=== PATIENT | male | born 1935 | race Two or more races ===

== ENCOUNTER 2016-12-10 23:24 | Inpatient (IN) | payer MEDICARE, BC ==
[~2016-12-10] VITALS: Ht 177.8 cm; Wt 86.2 kg
--- NOTE | 2016-12-10 23:40 | NUR ---
TO BED 1 BIB PARAMEDICS C/O DIZZINESS. PT AAOX4 NO ACUTE DISTRESS NOTED, RESP EVEN AND UNLABORED. PLACE PT ON CARDIAC MONITORING, CONTINUOUS POX. ER MD AT BEDSIDE TO EVAL PT WITH ORDERS RECEIVED. PUPILS PERRL, PT ABLE TO MOVE ALL EXTREMITIES WELL WITH BILATERAL EQUAL SPEECH AND HEARING DIRECTOR. SL 20G TO LAC BEAD WORKER SEWING.
[2016-12-11] MEDS ORDERED: ASPIRIN 81 MG TAB.CHEW ONE
[2016-12-11] MEDS ORDERED: ASPIRIN 81 MG TAB.CHEW PO ONE
[2016-12-11] MEDS ORDERED: IV NS 0.9% 1,000 ML BAG IV ONE
[2016-12-11 00:08] LABS: BASOPHILS % (AUTO) 0.4 % (0.0-2.0); EOSINOPHILS # (AUTO) 0.1 /CMM (0.0-0.7); EOSINOPHILS % (AUTO) 1.4 % (0.0-6.0); HEMATOCRIT 41 % (39-51); HEMOGLOBIN 14.2 g/dL (13.5-17.5); LYMPHOCYTES # (AUTO) 1.3 /CMM (0.8-4.8); LYMPHOCYTES % (AUTO) 24.4 % (20.0-44.0); MEAN CORPUSCULAR HEMOGLOBIN 31 PG (26.0-33.0); MEAN CORPUSCULAR HGB CONC 35 g/dl (31.0-36.0); MEAN CORPUSCULAR VOLUME 89 fL (80-96); MONOCYTES # (AUTO) 0.4 /CMM (0.1-1.30); MONOCYTES % (AUTO) 7.6 % (2.0-12.0); NEUTROPHILS # (AUTO) 3.7 /CMM (1.8-8.9); NEUTROPHILS % (AUTO) 66.2 % (43.0-81.0); PLATELET COUNT (AUTO) 138 /CMM (150-450); RDW COEFFICIENT OF VARIATION 14.2 (11.5-15.0); RED BLOOD CELL COUNT(AUTO) 4.64 MIL/uL (4.5-6.0); WHITE BLOOD COUNT (AUTO) 5.5 K/uL (4.3-11.0)
--- NOTE | 2016-12-11 00:17 | NUR ---
ASSIGNED TELE BED 321-2
[2016-12-11 00:26] LABS: CALCIUM, SERUM 8.7 mg/dL (8.5-10.1); CARBON DIOXIDE 23 mmol/L (21-32); CHLORIDE 103 mmol/L (98-107); CREATININE 1.9 mg/dL (0.6-1.3); GLUCOSE 272 mg/dL (74-106); POTASSIUM 4.7 mmol/L (3.5-5.1); SODIUM SERUM 137 mmol/L (136-145); UREA NITROGEN, BLOOD 26 mg/dL (7-18)
[2016-12-11 00:32] LABS: ALANINE AMINOTRANSFERASE 29 U/L (12-78); ALBUMIN 3.7 g/dL (3.4-5.0); ALKALINE PHOSPHATASE 46 U/L (46-116); ASPARTATE AMINOTRANSFERASE 16 U/L (15-37); BILIRUBIN,DIRECT 0.1 mg/dL (0.0-0.2); BILIRUBIN,TOTAL 0.5 mg/dL (0.2-1.0); TOTAL PROTEIN, SERUM 7.3 g/dL (6.4-8.2)
[2016-12-11 00:34] LABS: TROPONIN I < 0.017 ng/mL (0.00-0.056)
--- NOTE | 2016-12-11 00:51 | NUR ---
ER MD AT BEDSIDE TALKING TO PT AND PT FAMILY MEMBERS REGARIDNG LAB RESULTS AND HOSPITAL ADMISSION. PT AGREED.
[2016-12-11 01:03] LABS: INR 1.07 (0.87-1.13); PROTHROMBIN TIME 11.5 SECS (9.5-12.7)
--- NOTE | 2016-12-11 01:06 | NUR ---
ER SPOKE TO CLAIRE TRIANA DNP REGARDING PT ADMISSION.
--- NOTE | 2016-12-11 01:07 | NUR ---
REPORT CALLED TO ANTOINETTE OVIEDO. WILL RTANSPORT PT VIA ACLS PROTOCOL.
[2016-12-11 01:25] VITALS: BP 137/75
[2016-12-11] MEDS ORDERED: FENO145T20 PO (01:54)
[2016-12-11] MEDS ORDERED: CLOP75TA2 PO (01:54)
[2016-12-11] MEDS ORDERED: DOXA4TAB3 PO (01:54)
[2016-12-11] MEDS ORDERED: CARV3.122 PO (01:54)
[2016-12-11] MEDS ORDERED: DIFL5DRO OP (01:54)
[2016-12-11] MEDS ORDERED: GLIM4TAB2 PO (01:54)
[2016-12-11] MEDS ORDERED: LEVO500T90 PO (01:54)
[2016-12-11] MEDS ORDERED: PRAV40TA3 PO (01:54)
[2016-12-11] MEDS ORDERED: MOXI3DRO LEFTEYE (01:54)
[2016-12-11] MEDS ORDERED: LOSA50TA21 PO (01:54)
[2016-12-11] MEDS ORDERED: GLIM2TAB2 PO (01:54)
[2016-12-11] MEDS ORDERED: ONDANSETRON HCL/PF 4 MG/2 ML VIAL IVP PRN (02:00)
[2016-12-11] MEDS ORDERED: Z GUARD REMEDY 2 OZ OINT TP PRN (02:00)
[2016-12-11] MEDS ORDERED: ENOXAPARIN SODIUM 40 MG/0.4 ML DISP.SYRIN SQ SCH (02:00)
[2016-12-11] MEDS ORDERED: OMEG500C PO (02:10)
[2016-12-11] MEDS: IV NS 0.9% 1,000 ML IV PRN (02:22)
[2016-12-11] MEDS ORDERED: DEXTROSE 50%-WATER 50 ML DISP.SYRIN IV PRN (02:30)
[2016-12-11] MEDS ORDERED: ENOXAPARIN SODIUM 40 MG/0.4 ML DISP.SYRIN SQ ONE (02:36)
--- NOTE | 2016-12-11 02:45 | NUR ---
CHANG SINCLAIR NOTES RECEIVED PATIENT AT 0145 FROM [facility] VIA ACLS PROTOCOL ATTACH TO TELE MONITOR. PATIENT NOT IN ACUTE RESPIRATORY DISTRESS, NO COMPLAINS OF CHEST PAIN 0/10 SON AT BEDSIDE PATIENT SPEAKS SWEDISH, LAC 20 G IV SITE INTACT NO S/S OF INFILTRATION. HEAD TO TOE ASSESSMENT IS DONE SKIN IS INTACT, PATIENT IS AMBULATORY. CALL LIGHT WITHIN REACH. SAFETY MEASURES IN PLACE, ON LOW BED, WILL CONTINUE TO MONITOR PT. Addendum: 12/11/16 at 0314 by IVELISSE HALL RN ADDENDUM CORRECTION PATIENT CAME AT 0115 AM AT 12/11/16 FROM [facility]
[2016-12-11 04:05] VITALS: BP 115/62
[2016-12-11] MEDS: BLOOD SUGAR DIAGNOSTIC 1 EACH STRIP IN SCH ×4 (05:40→21:49)
[2016-12-11] MEDS: INSULIN REGULAR, HUMAN 100 UNIT/ML 3 ML VIAL SQ PRN ×2 (05:44→21:50)
--- NOTE | 2016-12-11 05:54 | NUR ---
PATIENT REFUSED HIS R INSULIN 3 UNITS AC DESPITE EXPLANATION OF RISKS AND BENEFITS OFFERED 3 TIMES STILL REFUSES MJose Roberto MADE AWARE
--- NOTE | 2016-12-11 06:39 | NUR ---
RECEIVED CALL FROM EMERY AT [facility]. EMERY STATED THE PT IS CAPITATED AT ANOTHER HOSPITAL. I INFORMED EMERY THAT THE PT WAS UNSTABLE PER DR. MCKEON'S MEDICAL ASSESSMENT; HOWEVER, THE ADMITTING DEPARTMENT FAXED THE INFO TO [facility] BELIEVING THE PT WAS STABLE. EMERY STATED SHE UNDERSTOOD AND THAT SHE WILL MAKE A NOTE THAT PT WAS ADMITTED UNSTABLE, AND SHE WILL INFORM THE IPA THAT THE PT WAS UNSTABLE.
--- NOTE | 2016-12-11 06:53 | NUR ---
RESEARCH ASSOCIATE PROFESSOR CLOSING NOTES PATIENT COMFORTABLY ASLEEP AND EASILY AWAKEN, HEAD OF BED ELEVATED FOR BETTER LUNG EXPANSION AND GOOD CIRCULATION. TOLERATING ROOM AIR 02 SAT 98% LAC 20G IV SITE NO S/S OF INFILTRATED PATENT AND FLUSHED NS RUNNING AT 75CC/HR. RESPIRATIONS EVEN AND UNLABORED, FREQUENT VISUAL CHECK DONE FOR SAFETY EVERY 2 HOURS. NURSING CARE RENDERED, NEEDS ATTENDED AND ANTICIPATED, KEPT CLEAN AND DRY AND COMFORTABLE, GOOD SKIN CARE PROVIDED. OFFLOAD AT ALL TIMES. SAFE HAZARD FREE ENVIRONMENT PROVIDED. CALL LIGHT WITHIN EASY TO REACH, ON LOW BED AT ALL TIMES TO ENSURE SAFETY, WILL ENDORSE TO THE NEXT SHIFT CONTINUE PLAN OF CARE. NO S/S OF HYPO/HYPERGLYCEMIA. ATTACH TO TELE MONITOR SR 81'S
--- NOTE | 2016-12-11 07:35 | NUR ---
AM RN NOTE Received patient sleeping comfortably in his bed, no acute distress noted. Resp even and non-labored. IV site intact and patent, continue on IV fluids @75ml/hr. Bed in low locked position. Will continue to monitor.
[2016-12-11 08:00] VITALS: BP 119/68
--- NOTE | 2016-12-11 08:35 | NUR ---
AM RN NOTE Patient awake, A/O X4 verbally responsive. Son at bedside. Per patient and son, pt doesn't take coreg, cardura, cozaar and Insulin. Per patient, he does not take blood pressure meds unless its not really high. And also he doesn't take insulin.
[2016-12-11] MEDS ORDERED: EYE LEFTEYE SCH ×2 (09:00→17:30)
[2016-12-11] MEDS ORDERED: DUREZOL 0.05% LEFTEYE SCH ×2 (09:00→17:30)
[2016-12-11] MEDS: CARVEDILOL 3.125 MG TABLET PO SCH ×2 (09:00→17:32)
[2016-12-11] MEDS: LOSARTAN POTASSIUM 50 MG TABLET PO SCH (09:00)
[2016-12-11] MEDS ORDERED: MOXIFLOXACIN OPTH 3 ML BOTTLE LEFTEYE SCH ×2 (09:00→17:30)
[2016-12-11] MEDS ORDERED: GLIMEPIRIDE 1 MG TABLET PO PRN (09:00)
[2016-12-11] MEDS: DOXAZOSIN MESYLATE (4 MG) 4 MG TABLET PO SCH (09:00)
[2016-12-11] MEDS: CLOPIDOGREL BISULFATE 75 MG TABLET PO SCH (09:28)
[2016-12-11] MEDS: GLIMEPIRIDE 4 MG TABLET PO SCH (09:28)
[2016-12-11] MEDS: FENOFIBRATE NANOCRYS (145 MG) 145 MG TABLET PO SCH (09:34)
--- NOTE | 2016-12-11 10:00 | NUR ---
AM RN NOTE Pt refused coreg, cardura, cozaar and Insulin this morning per sliding scale. Dr. Hernandez made aware.
[2016-12-11 12:00] VITALS: BP 139/84
--- NOTE | 2016-12-11 12:11 | NUR ---
AM RN NOTE Pt BS 269mg/dl and refused insulin per sliding scale. MD aware
[2016-12-11] MEDS: ACETAMINOPHEN 325 MG TABLET PO PRN (14:31)
--- NOTE | 2016-12-11 15:00 | NUR ---
AM RN NOTE Pt c/o IV site bothering him on LAC. Inserted new site on LFA #22 X1 attempt per patient request.
--- NOTE | 2016-12-11 15:31 | NUR ---
AM RN NOTE Pt stated feeling better, denies any headache at this time.
[2016-12-11 16:00] VITALS: BP 143/83
--- NOTE | 2016-12-11 17:57 | NUR ---
AM RN NOTE Patient awake, A/O X4. Son at bedside. Pt notified RN that he takes 2 eye drops (Vigamox, Durezol) at 0930, 1730 and 0130. Bayron (Pharmacist) made aware. Pt took Coreg evening dose, but continuous to refuse insulin per sliding scale. MD aware. BS 137mg/dl before dinner.
--- NOTE | 2016-12-11 18:13 | NUR ---
AM RN NOTE Patient resting in his bed, no acute distress noted. IV site intact and patent. Will continue to monitor and endorse care to next shift.
--- NOTE | 2016-12-11 19:10 | NUR ---
RN OPEN NOTE RECEIVED PATIENT AWAKE IN BED. A/O X4. NO SIGNS OF DISTRESS OR DISCOMFORT. BREATHING EVEN AND UNLABORED. ON TELE MONITORING WITH SR 85 NOTED. IV ACCESS IN LFA WITH D5 1/2 NS INFUSING, PATENT AND INTACT, NO SIGNS OF REDNESS OR INFILTRATION. BED IN LOW LOCKED POSITION WITH SIDE RAILS X2. CALL LIGHT WITHIN REACH. WILL CONTINUE TO MONITOR.
[2016-12-11 19:35] LABS: CREATININE, URINE 46.5 MG/DL (30.0-125.0)
[2016-12-11 19:46] LABS: APPEARANCE,URINE CLEAR (CLEAR); BILIRUBIN,URINE NEGATIVE (NEGATIVE); BLOOD, URINE NEGATIVE Ery/uL (NEGATIVE); COLOR,URINE YELLOW (YELLOW); KETONES,URINE NEGATIVE (NEGATIVE); LEUKOCYTE ESTERASE ,URINE NEGATIVE (NEGATIVE); NITRITE, URINE NEGATIVE (NEGATIVE); PH,URINE 5.5 (5.0-8.0); PROTEIN,URINE TRACE mg/dl (NEGATIVE); UGLUCOSE NEGATIVE (NEGATIVE); UROBILINOGEN,URINE 0.2 EU/dL (0.2)
[2016-12-11 19:51] LABS: BACTERIA,URINE Few /HPF (None Seen); RBC,URINE 0-2 /HPF (0-2); SQUAMOUS EPITHELIAL CELL,UR Few /HPF (None Seen); WBC,URINE 0-2 /HPF (0-3)
[2016-12-11 20:00] VITALS: BP 144/83
[2016-12-11] MEDS: ATORVASTATIN 10 MG TABLET PO SCH (21:46)
--- NOTE | 2016-12-11 21:50 | NUR ---
RN NOTES PATIENT REFUSED INSULIN ADMINISTRATION X3 FOR BS 213. PATIENT EDUCATION REINFORCED. WILL CONTINUE TO MONITOR.
[2016-12-11] MEDS ORDERED: PRAVASTATIN SODIUM 20 MG TABLET PO SCH (22:00)
[2016-12-12] VITALS (8 sets, daily range): BP systolic 125–149; BP diastolic 76–85
[2016-12-12] MEDS: DUREZOL 0.05% LEFTEYE SCH ×3 (01:15→17:15)
[2016-12-12] MEDS: EYE LEFTEYE SCH ×3 (01:15→17:15)
[2016-12-12] MEDS: MOXIFLOXACIN OPTH 3 ML BOTTLE LEFTEYE SCH ×3 (01:16→17:18)
[2016-12-12] MEDS: ACETAMINOPHEN 325 MG TABLET PO PRN (01:22)
--- NOTE | 2016-12-12 01:22 | NUR ---
RN NOTES ADMINISTERED TYLENOL 650MG ORDERED FOR HEADACHE. WILL CONTINUE TO MONITOR.
--- NOTE | 2016-12-12 01:30 | NUR ---
RN NOTES PATIENT REFUSES IVF X3. PATIENT EDUCATION REINFORCED. WILL CONTINUE TO MONITOR.
[2016-12-12] MEDS: BLOOD SUGAR DIAGNOSTIC 1 EACH STRIP IN SCH ×4 (06:50→21:21)
[2016-12-12] MEDS: INSULIN REGULAR, HUMAN 100 UNIT/ML 3 ML VIAL SQ PRN (06:51)
--- NOTE | 2016-12-12 06:52 | NUR ---
RN CLOSING NOTE PATIENT RESTING IN BED, EASILY AROUSABLE TO NAME. A/O X4. NO SIGNS OF DISTRESS OR DISCOMFORT. BREATHING EVEN AND UNLABORED. ON TELE MONITORING WITH SR 68 NOTED. IV ACCESS IN LFA PATENT AND INTACT, NO SIGNS OF REDNESS OR INFILTRATION. NO SIGNIFICANT CHANGES THROUGH THE NIGHT. ALL NEEDS MET. BED IN LOW LOCKED POSITION WITH SIDE RAILS X2. CALL LIGHT WITHIN REACH. WILL ENDORSE TO AM SHIFT FOR APOLINAR.
[2016-12-12 07:33] LABS: BASOPHILS % (AUTO) 0.2 % (0.0-2.0); EOSINOPHILS # (AUTO) 0.1 /CMM (0.0-0.7); HEMATOCRIT 41 % (39-51); HEMOGLOBIN 13.9 g/dL (13.5-17.5); LYMPHOCYTES # (AUTO) 1.9 /CMM (0.8-4.8); LYMPHOCYTES % (AUTO) 36.5 % (20.0-44.0); MEAN CORPUSCULAR HEMOGLOBIN 30 PG (26.0-33.0); MEAN CORPUSCULAR HGB CONC 34 g/dl (31.0-36.0); MEAN CORPUSCULAR VOLUME 89 fL (80-96); MONOCYTES # (AUTO) 0.5 /CMM (0.1-1.30); MONOCYTES % (AUTO) 10.2 % (2.0-12.0); NEUTROPHILS # (AUTO) 2.7 /CMM (1.8-8.9); NEUTROPHILS % (AUTO) 51.1 % (43.0-81.0); PLATELET COUNT (AUTO) 138 /CMM (150-450); RDW COEFFICIENT OF VARIATION 14.1 (11.5-15.0); RED BLOOD CELL COUNT(AUTO) 4.59 MIL/uL (4.5-6.0); WHITE BLOOD COUNT (AUTO) 5.3 K/uL (4.3-11.0)
--- NOTE | 2016-12-12 07:34 | NUR ---
AM RN NOTE Received patient sleeping comfortably in his bed no acute distress noted. No SOB noted rep even and non-labored. On tele monitor, SR. IV on LFA intact and patent. Bed in low locked position. Will continue to monitor.
[2016-12-12 07:58] LABS: ALANINE AMINOTRANSFERASE 28 U/L (12-78); ALBUMIN 3.5 g/dL (3.4-5.0); ALKALINE PHOSPHATASE 39 U/L (46-116); ASPARTATE AMINOTRANSFERASE 14 U/L (15-37); BILIRUBIN,TOTAL 0.5 mg/dL (0.2-1.0); CALCIUM, SERUM 8.7 mg/dL (8.5-10.1); CARBON DIOXIDE 26 mmol/L (21-32); CHLORIDE 105 mmol/L (98-107); CREATININE 1.6 mg/dL (0.6-1.3); GLUCOSE 130 mg/dL (74-106); MAGNESIUM 1.6 mg/dL (1.8-2.4); PHOSPHORUS 3.8 mg/dL (2.5-4.9); POTASSIUM 4.2 mmol/L (3.5-5.1); SODIUM SERUM 140 mmol/L (136-145); UREA NITROGEN, BLOOD 23 mg/dL (7-18)
[2016-12-12 08:07] LABS: CHOLESTEROL 181 mg/dL (<200); HDL CHOLESTEROL 29 mg/dL (40-60); LDL 93 mg/dL (0-99); THYROID STIMULATING HORMONE 1.113 uIU/mL (0.358-3.74); TRIGLYCERIDES 313 mg/dL (30-150)
[2016-12-12] MEDS: CLOPIDOGREL BISULFATE 75 MG TABLET PO SCH (08:51)
[2016-12-12] MEDS: FENOFIBRATE NANOCRYS (145 MG) 145 MG TABLET PO SCH (08:52)
[2016-12-12] MEDS: CARVEDILOL 3.125 MG TABLET PO SCH ×2 (08:53→17:11)
[2016-12-12] MEDS: DOXAZOSIN MESYLATE (4 MG) 4 MG TABLET PO SCH (09:00)
[2016-12-12] MEDS: ENOXAPARIN SODIUM 30 MG/0.3 ML DISP.SYRIN SQ SCH (09:00)
[2016-12-12] MEDS: LOSARTAN POTASSIUM 50 MG TABLET PO SCH (09:00)
[2016-12-12] MEDS: GLIMEPIRIDE 4 MG TABLET PO SCH (09:22)
--- NOTE | 2016-12-12 10:00 | NUR ---
AM RN NOTE Patient refused Cardura, Losartan this am aware with NNO.
[2016-12-12] MEDS ORDERED: Magnesium 1GM/D5W 100ML PREMIX 100 ML IV SCH (11:00)
--- NOTE | 2016-12-12 12:05 | NUR ---
AM RN NOTE BS 343MG/DL, PATIENT REFUSED INSULIN PER S/S. DR. FARIAS AWARE WITH NNO. PT DENIES ANY PAIN OR DISCOMFORT AT THIS TIME.
[2016-12-12] MEDS: IV NS 0.9% 1,000 ML IV PRN (17:10)
--- NOTE | 2016-12-12 17:18 | NUR ---
AM RN NOTE BS 151MG/DL. PATIENT REFUSED INSULIN PER S/S. MD AWARE NNO.
--- NOTE | 2016-12-12 18:13 | NUR ---
AM RN NOTE Patient resting in his bed, no acute distress noted. On tele monitor, SR. Will continue to monitor and endorse care to next shift.
[2016-12-12] MEDS: ATORVASTATIN 10 MG TABLET PO SCH (21:21)
--- NOTE | 2016-12-12 22:00 | NUR ---
HOME SALES SERVICE PROFESSIONAL NOTE BLOOD SUGAR 212. PATIENT REFUSING INSULIN.
[2016-12-13] VITALS: BP 155/96
[2016-12-13] MEDS: EYE LEFTEYE SCH ×2 (01:26→09:14)
[2016-12-13] MEDS: DUREZOL 0.05% LEFTEYE SCH ×2 (01:26→09:14)
[2016-12-13] MEDS: MOXIFLOXACIN OPTH 3 ML BOTTLE LEFTEYE SCH ×2 (01:31→09:14)
[2016-12-13 04:00] VITALS: BP 158/90
[2016-12-13 06:00] VITALS: BP 133/81
[2016-12-13] MEDS: BLOOD SUGAR DIAGNOSTIC 1 EACH STRIP IN SCH ×2 (06:30→11:50)
--- NOTE | 2016-12-13 06:31 | NUR ---
LABOR ECONOMICS PROFESSOR NOTE PATIENT STABLE. BLOOD SUGAR 141. REFUSING INSULIN. NO PAIN OR DISCOMFORT NOTED. IV SITE INTACT, WITH FLUIDS RUNNING ORDERED. ALL NEEDS MET AND ATTENDED TO. WILL ENDORSE TO DAY SHIFT FOR APOLINAR.
[2016-12-13 06:36] LABS: BASOPHILS % (AUTO) 0.1 % (0.0-2.0); EOSINOPHILS # (AUTO) 0.1 /CMM (0.0-0.7); EOSINOPHILS % (AUTO) 2.5 % (0.0-6.0); HEMATOCRIT 42 % (39-51); HEMOGLOBIN 14.8 g/dL (13.5-17.5); LYMPHOCYTES # (AUTO) 1.9 /CMM (0.8-4.8); LYMPHOCYTES % (AUTO) 32.7 % (20.0-44.0); MEAN CORPUSCULAR HEMOGLOBIN 31 PG (26.0-33.0); MEAN CORPUSCULAR HGB CONC 35 g/dl (31.0-36.0); MEAN CORPUSCULAR VOLUME 88 fL (80-96); MONOCYTES # (AUTO) 0.6 /CMM (0.1-1.30); NEUTROPHILS # (AUTO) 3.2 /CMM (1.8-8.9); NEUTROPHILS % (AUTO) 54.7 % (43.0-81.0); PLATELET COUNT (AUTO) 139 /CMM (150-450); RDW COEFFICIENT OF VARIATION 14.2 (11.5-15.0); RED BLOOD CELL COUNT(AUTO) 4.78 MIL/uL (4.5-6.0); WHITE BLOOD COUNT (AUTO) 5.8 K/uL (4.3-11.0)
[2016-12-13 06:53] LABS: CALCIUM, SERUM 8.7 mg/dL (8.5-10.1); CARBON DIOXIDE 26 mmol/L (21-32); CHLORIDE 102 mmol/L (98-107); CREATININE 1.6 mg/dL (0.6-1.3); GLUCOSE 129 mg/dL (74-106); MAGNESIUM 1.6 mg/dL (1.8-2.4); POTASSIUM 4.2 mmol/L (3.5-5.1); SODIUM SERUM 137 mmol/L (136-145); UREA NITROGEN, BLOOD 25 mg/dL (7-18)
--- NOTE | 2016-12-13 07:15 | NUR ---
SOCIAL HUMAN SERVICES ASSISTANTS OPENING NOTES RECEIVED PT FROM NIGHTSHIFT NURSE IN STABLE CONDITION. PT IS A/O X4. NO SOB OR SIGNS OF DISTRESS NOTED. BREATHING IS EVEN AND UNLABORED. PT IS SR ON THE TELE MONITOR WITH A HR OF 76. IV PRESENT ON LEFT FA 22G INFUSING NS @ 75ML/HR. PT TOLERATING INFUSION WELL. NO REDNESS OR SIGNS OF INFILTRATION NOTED. BED IN LOW LOCKED POSITION, SIDE RAILS UP X2, CALL LIGHT WITHIN REACH. WILL CONTINUE TO MONITOR.
[2016-12-13] MEDS: DOXAZOSIN MESYLATE (4 MG) 4 MG TABLET PO SCH (09:11)
[2016-12-13] MEDS: FENOFIBRATE NANOCRYS (145 MG) 145 MG TABLET PO SCH (09:11)
[2016-12-13 09:12] VITALS: BP 133/81
[2016-12-13] MEDS: LOSARTAN POTASSIUM 50 MG TABLET PO SCH (09:12)
[2016-12-13] MEDS: CARVEDILOL 3.125 MG TABLET PO SCH (09:12)
[2016-12-13] MEDS: CLOPIDOGREL BISULFATE 75 MG TABLET PO SCH (09:12)
[2016-12-13] MEDS: GLIMEPIRIDE 4 MG TABLET PO SCH (09:13)
[2016-12-13] MEDS: ENOXAPARIN SODIUM 30 MG/0.3 ML DISP.SYRIN SQ SCH (09:18)
[2016-12-13] MEDS ORDERED: Magnesium 1GM/D5W 100ML PREMIX 100 ML IV SCH (10:38)
--- NOTE | 2016-12-13 13:04 | NUR ---
TYRE FINISHER AND EXAMINERCOLLECTIVE BARGAINING SPECIALIST NOTES PT DISCHARGED FROM UNIT IN STABLE CONDITION. ALL NEEDS WERE MET DURING SHIFT AND ORDERS CARRIED OUT ACCORDINGLY. PT SIGNED ALL DISCHARGE PAPERWORK AND BELONGINGS FORM. EYE MEDICATIONS WERE SENT HOME WITH PT. ORDER FOR HOME HEALTH WAS ALSO SENT WITH PT. PT. WAS ESCORTED OFF THE UNIT AND SAFELY LEFT THE HOSPITAL VIA PRIVATE CARE DRIVEN BY HIS SON TYRESE.
== END 2016-12-13 12:53 | disposition home health service (06) | DRG 917 ==
LOC: ER 23:26 → TELE 12-11 01:27
PROVIDERS: ADMIT Nurse Practitioner Acute Care; ATTEND Family Medicine
DX: T46.5X1A Poisoning by other antihypertensive drugs, accidental (unintentional), initial encounter (principal); N17.0 Acute kidney failure with tubular necrosis; Z95.5 Presence of coronary angioplasty implant and graft; Z87.891 Personal history of nicotine dependence; Z82.49 Family history of ischemic heart disease and other diseases of the circulatory system; Z83.3 Family history of diabetes mellitus; I25.10 Atherosclerotic heart disease of native coronary artery without angina pectoris; Z79.899 Other long term (current) drug therapy; I10 Essential (primary) hypertension; E86.0 Dehydration; E78.00 Pure hypercholesterolemia, unspecified; E11.9 Type 2 diabetes mellitus without complications; I95.2 Hypotension due to drugs; Y92.009 Unspecified place in unspecified non-institutional (private) residence as the place of occurrence of the external cause
CPT/HCPCS: 36415; 71010-TC; 80048-TC; 80053-TC; 80061-TC; 80076-TC; 81000-TC; 82570-TC; 82962-TC; 83735-TC; 84100-TC; 84300-TC; 84443-TC; 84484-TC; 85025-TC; 85730-TC; 87081-TC; 93307-TC; A4606; J1650; J1815; J3475; J7030; Z7610

== ENCOUNTER 2022-05-21 17:35 | Emergency (ER) | payer MEDICARE, OTHER ==
[~2022-05-21] VITALS: Ht 167.6 cm; Wt 72.6 kg
[~2022-05-21 17:35] MED LIST: CARV3.122 PO; CLOP75TA15 PO; DIFL5DRO OP; DOXA4TAB3 PO; FENO145T21 PO; GLIM2TAB31 PO; GLIM4TAB37 PO; LOSA50TA39 PO; MOXI3DRO LEFTEYE; OMEG500C PO; PRAV40TA3 PO
--- NOTE | 2022-05-21 17:55 | NUR ---
RECEIVED PT 86 YRS MALE CAME FROM HOME accompany by son pt c/o genralized weekness and dizziness x1 day awake and alert no weekness walking with stady gait
--- NOTE | 2022-05-21 18:05 | NUR ---
TO CT SACN OF HEAD
[2022-05-21] MEDS ORDERED: MECLIZINE HCL 25 MG TABLET ONE (18:29)
[2022-05-21] MEDS ORDERED: MECLIZINE HCL 25 MG TABLET PO ONE (18:30)
--- NOTE | 2022-05-21 18:45 | NUR ---
SON AT BED SIDE [facility] .MKRTCHYAN AND DE NUMBER
[2022-05-21] MEDS ORDERED: LOSARTAN POTASSIUM 25 MG TABLET PO ONE (19:30)
[2022-05-21 19:41] LABS: ALANINE AMINOTRANSFERASE 33 U/L (12-78); ALBUMIN 3.9 g/dL (3.4-5.0); ALKALINE PHOSPHATASE 54 U/L (46-116); ASPARTATE AMINOTRANSFERASE 19 U/L (15-37); BILIRUBIN,DIRECT 0.2 mg/dL (0.0-0.2); BILIRUBIN,TOTAL 0.7 mg/dL (0.2-1.0); CALCIUM, SERUM 9.4 mg/dL (8.5-10.1); CARBON DIOXIDE 22 mmol/L (21-32); CHLORIDE 98 mmol/L (98-107); CREATININE 2.4 mg/dL (0.6-1.3); GLUCOSE 196 mg/dL (74-106); POTASSIUM 4.6 mmol/L (3.5-5.1); SODIUM SERUM 132 mmol/L (136-145); TOTAL PROTEIN, SERUM 7.8 g/dL (6.4-8.2); UREA NITROGEN, BLOOD 32 mg/dL (7-18)
--- NOTE | 2022-05-21 19:43 | NUR ---
HAND OFF ALDAIR DOWNING
[2022-05-21] MEDS ORDERED: LOSARTAN POTASSIUM 50 MG TABLET ONE (19:52)
[2022-05-21 19:54] LABS: BASOPHILS % (AUTO) 0.1 % (0.0-2.0); EOSINOPHILS % (AUTO) 0.9 % (0.0-6.0); HEMATOCRIT 41 % (39-51); MEAN CORPUSCULAR HGB CONC 35 g/dl (31.0-36.0); MEAN CORPUSCULAR VOLUME 88 fL (80-96); MONOCYTES # (AUTO) 0.4 K/uL (0.1-1.30); MONOCYTES % (AUTO) 7.7 % (2.0-12.0); NEUTROPHILS # (AUTO) 4.3 K/uL (1.8-8.9); NEUTROPHILS % (AUTO) 74.3 % (43.0-81.0); PLATELET COUNT (AUTO) 145 K/uL (150-450); WHITE BLOOD COUNT (AUTO) 5.8 K/uL (4.3-11.0)
[2022-05-21] MEDS ORDERED: MECL-159 PO (20:46)
--- NOTE | 2022-05-21 20:54 | NUR ---
SON WILL BE HERE TO OBSTETRICS SCRUB NURSE PATIENT IN 45MINUTES
[2022-05-21 21:59] VITALS: BP 152/90
--- NOTE | 2022-05-21 21:59 | NUR ---
Patient discharged to son Esperanza in stable condition. Written and verbal after care instructions given. Patient verbalizes understanding of instruction.
== END 2022-05-21 22:00 | disposition home or self-care (01) ==
LOC: ER 17:37
DX: R42 Dizziness and giddiness (principal); I10 Essential (primary) hypertension; E78.00 Pure hypercholesterolemia, unspecified; E11.9 Type 2 diabetes mellitus without complications; Z79.899 Other long term (current) drug therapy
CPT/HCPCS: 99285; 70450; 71045; 93005; 85025; 80048; 80076; 36415; 84484; 83880; 82962; J8597